=== PATIENT | female | born 1960 | race Caucasian/White ===

== ENCOUNTER → 2021-02-12 | Outpatient (CLI) | payer BC ==
--- NOTE | 2021-02-12 17:05 | MR ---
EXAMINATION TYPE: MR knee RT wo con DATE OF EXAM: 02/12/2021 COMPARISON: None HISTORY: Outer right knee pain, clicking, and swelling since 03/2020. Multiplanar multiecho imaging of the right knee without contrast. The anterior and posterior cruciate ligaments are intact. There is moderate size knee joint effusion. There is oblique increased signal in the posterior horn lateral meniscus extending to the inferior s urface. There is some irregular increased signal in the anterior horn of the lateral meniscus. The me dial meniscus appears fairly normal. On the proton density images there is extensive abnormal increased signal involving the lateral femor al and tibial condyles. I see no fracture line. The proximal fibula is intact. There is some increase d signal in the lateral collateral ligament. There are subchondral degenerative cysts formation at in the patella. Impression: There are tears of the anterior posterior horns of the lateral meniscus. There is extensive edema in the lateral femoral and tibial condyles consistent with bone bruise. No fracture line seen. There is evidence for at least a partial tear of the lateral collateral ligament. Knee joint effusion.
== END | disposition home or self-care (01) ==
LOC: RADMRIMAIN 10:15
PROVIDERS: ATTEND Orthopaedic Surgery
DX: M23.351 Other meniscus derangements, posterior horn of lateral meniscus, right knee (principal); R60.0 Localized edema

== ENCOUNTER → 2021-04-13 | Outpatient (CLI) | payer BC ==
[2021-04-13 16:04] LABS: Basophils % (A) 1 %; Eosinophils # (A) 0.4 k/uL (0-0.7); Eosinophils % (A) 6 %; HCT 41.7 % (34.0-46.0); Lymphocytes # (A) 2.1 k/uL (1.0-4.8); Lymphocytes % (A) 34 %; MCH 30.1 pg (25.0-35.0); MCHC 31.1 g/dL (31.0-37.0); MCV 96.7 fL (80.0-100.0); Mean Platelet Volume 7.8; Monocytes # (A) 0.3 k/uL (0-1.0); Monocytes % (A) 6 %; Neutrophils # (A) 3.2 k/uL (1.3-7.7); Neutrophils % (A) 53 %; Platelet Count 298 k/uL (150-450); RBC 4.31 m/uL (3.80-5.40); RDW 13.2 % (11.5-15.5); WBC 6.1 k/uL (3.8-10.6)
[2021-04-13 16:21] LABS: Potassium 4.2 mmol/L (3.5-5.1)
== END | disposition home or self-care (01) ==
LOC: LABPAT 15:17
PROVIDERS: ATTEND Orthopaedic Surgery
DX: Z01.818 Encounter for other preprocedural examination (principal); M23.91 Unspecified internal derangement of right knee
CPT/HCPCS: 80051; 85025; 93005

== ENCOUNTER 2021-04-21 10:00 | Day surgery (SDC) | payer BC ==
[2021-04-19 10:36] VITALS: BMI 32.8
--- NOTE | 2021-04-21 08:23 | HP ---
HISTORY AND PHYSICAL REASON FOR ADMISSION: Surgery scheduled for 04/21/2021 HISTORY OF PRESENT ILLNESS: Emilia Olsen is a 61-year-old patient seen with progressive right knee pain. We discussed options for treatment. She elected to proceed with arthroscopy. Consent was obtained. PAST MEDICAL HISTORY: Noncontributory. PAST SURGICAL HISTORY: Cholecystectomy, gastric bypass surgery. DAILY MEDICATIONS: None. ALLERGIES: CODEINE. SOCIAL HISTORY: She denies tobacco use. PHYSICAL EVALUATION OF THE RIGHT KNEE: Range of motion is -4/5 to 115 degrees. She has a mild effusion. Tenderness lateral joint line. Positive lateral Melissa's. Ligaments stable. Hip rotation without pain. Distal neurovascular exam intact. RADIOGRAPHS: Right knee radiographs revealed moderate osteoarthritic changes. Right knee MRI revealed lateral meniscal tear and effusion. IMPRESSION: Internal derangement of right knee lateral meniscal tear. PLAN: knee arthroscopy with partial lateral meniscectomy and debridement. Surgery scheduled for 04/21/2021. MMODL / IJN: [id number] /
[2021-04-21] MEDS ORDERED: ONDANSETRON 4 MG/2 ML VIAL IVP ONE ×2 (10:18→15:00)
[2021-04-21] MEDS ORDERED: MIDAZOLAM 2 MG/2 ML VIAL IV PRN (10:18)
[2021-04-21] MEDS ORDERED: HYDROmorphone 0.5 MG/0.5 ML SYRINGE IVP PRN (10:18)
[2021-04-21] MEDS ORDERED: LACTATED RINGERS 1,000 ML IV SCH (10:18)
[2021-04-21] MEDS ORDERED: LIDOCAINE 1% (10MG/ML) FOR IV START INTRADERMA PRN (10:18)
[2021-04-21] MEDS ORDERED: DEXAMETHASONE SOD PHOSPHATE 4 MG/ML 1 ML VIAL IV ONE (10:18)
[2021-04-21] MEDS ORDERED: LACTATED RINGERS 1,000 ML IV ONE (10:41)
[2021-04-21] MEDS ORDERED: SCOPOLAMINE 1.5MG/72HR PATCH TRANSDERM ONE (10:49)
[2021-04-21] MEDS ORDERED: KETOROLAC 15 MG/ML 1 ML VIAL ONE (11:14)
[2021-04-21] MEDS ORDERED: LIDOCAINE 1% INJ 10MG/ML (20 ML MDV) ONE (11:14)
[2021-04-21] MEDS ORDERED: fentaNYL (PF) 50 MCG/ML 2 ML AMP ONE (11:14)
[2021-04-21] MEDS ORDERED: MIDAZOLAM 2 MG/2 ML VIAL ONE (11:14)
[2021-04-21] MEDS ORDERED: PROPOFOL 10 MG/ML 20 ML VIAL IV ONE (11:14)
[2021-04-21] MEDS ORDERED: HYDROmorphone (PF) 1 MG/ML ONE (11:14)
[2021-04-21] MEDS ORDERED: BUPIVACAINE (PF) 0.25% 30 ML VIAL SQ ONE ×2 (11:17→12:00)
[2021-04-21 12:13] VITALS: TEMP 97.7
--- NOTE | 2021-04-21 12:23 | P.OP ---
Date of Procedure: 04/21/21 Preoperative Diagnosis: Internal derangement right knee Postoperative Diagnosis: 1. Tear lateral meniscus right knee 2. Grade 2/3 chondromalacia medial femoral condyle right knee 3. Reactive synovitis medial, lateral and suprapatellar compartments right knee Procedure(s) Performed: 1. Arthroscopic partial lateral meniscectomy right knee 2. Arthroscopic chondroplasty medial femoral condyle right knee 3. Arthroscopic partial synovectomy medial, lateral and suprapatellar compartments right knee Anesthesia: GETA, local Surgeon: Subhash Mcgraw Estimated Blood Loss (ml): 9 Pathology: none sent Condition: stable Disposition: PACU Indications for Procedure: 61-year-old patient seen with progressive right knee pain. After treatment options were discussed, she elected to proceed right knee arthroscopy. Operative Findings: See description of procedure Description of Procedure: Patient was taken to the operative suite. Patient underwent a general anesthetic by the department of anesthesia. Patient was given preoperative antibiotics. The right lower extremity was placed in a well-padded arthroscopic leg munoz. The right leg was prepped and draped in the normal sterile orthopedic fashion. A lateral parapatellar and suprapatellar incision was made. Trochars were inserted. Arthroscopy was initiated. Suprapatellar pouch revealed diffuse thick reactive synovitis. The patellofemoral joint appeared to articulate congruently. There was grade 2 chondromalacia of the patella with no tears present. The scope was guided into the medial gutter. No loose bodies or plica were identified. The scope was then guided into the medial compartment. A medial parapatellar incision was made. Trocar inserted followed by probe. The medial meniscus revealed some mild fraying posterior horn. There were grade 2/3 chondromalacia changes with osteochondral flap tears. There was thick reactive synovitis anteriorly. I debrided that superficial fraying posterior horn medial meniscus. I performed a chondroplasty of the medial femoral condyle. I performed a partial synovectomy decompressing the thick reactive synovitis along the anterior aspect. The shaver was removed. The residual osteochondral surface was stable. There was good decompression of the synovitis. Scope and probe were then guided into the intercondylar notch. Cruciates were identified, probed and found to be stable. The scope and probe were then guided into lateral compartment. There was a complex tear lateral meniscus involving the anterior horn and midbody and posterior horns. There were grade 2 chondromalacia changes of the lateral femoral condyle with no tears. There was thick reactive some-itis anteriorly. I performed a partial lateral meniscectomy getting down to stable meniscal tissue. I performed a partial synovectomy decompressing thick reactive synovitis. The shaver was removed. The residual meniscus was stable. There was good decompression of the synovitis. The scope was in guided back into the suprapatellar compartment. I introduced a motorized shaver into the super compartment. I debrided some piecemeal fragments of meniscus I encountered. I performed a partial synovectomy. The shaver was removed. There was good decompression of the synovitis. I took one more look on the entire knee, no residual debris. Instruments were now removed from the joint. The joint was infiltrated with .25% Marcaine. The portal sites were repaired with nylon suture. Sterile dressings were applied. The patient was placed into a AD hose. No tourniquet was utilized. The patient was awakened, transferred to a bed and taken to recovery stable satisfactory condition.
[2021-04-21 14:16] VITALS: RESP 16
[2021-04-21] MEDS ORDERED: ONDANSETRON 4 MG/2 ML VIAL ONE (15:22)
[2021-04-21 15:41] VITALS: BP 116/74; PULSE 74
== END 2021-04-21 15:54 | disposition home or self-care (01) ==
LOC: OR 10:00
PROVIDERS: ATTEND Orthopaedic Surgery
DX: M23.200 Derangement of unspecified lateral meniscus due to old tear or injury, right knee (principal); M94.261 Chondromalacia, right knee; M65.861 Other synovitis and tenosynovitis, right lower leg; Z90.49 Acquired absence of other specified parts of digestive tract; Z98.84 Bariatric surgery status; Z88.5 Allergy status to narcotic agent; Z87.891 Personal history of nicotine dependence; Z86.16 Personal history of COVID-19
CPT/HCPCS: 29881; J2250; J1100; J0690; J2405; J2001; J3010; J1170 ×2; J1885; J2704; J1790